=== PATIENT | female | born 1975 | race Caucasian/White ===

== ENCOUNTER 2019-12-19 12:20 | Emergency (ER) | payer OTHER, SELFPAY ==
[2019-12-19 12:20] VITALS: BP 149/85; PULSE 73; RESP 16; TEMP 36.9; O2SAT 100; BMI 24.7
--- NOTE | 2019-12-19 12:41 | ED_ITS ---
HPI - Headache <ADRIENNE Kan - Last Filed: 12/19/19 21:23> General Chief Complaint: Headache Stated Complaint: vision/headache Time Seen by Provider: 12/19/19 12:27 Mode of arrival: Ambulatory Limitations: no limitations History of Present Illness HPI Narrative: 44yo female with a history of migraine presents emergency department reporting unusual vision changes and headache that started today. Patient states she had a dull aching headache throughout the day yesterday. Today patient reports she went for a 5 mile jog today and did a strength workout. She returned to the [facility] an and approximately 60 minutes after her workout she was looking at a wearing panel and reported she lost central vision in her eyes bilaterally. She describes it as a ?horvath center that slowly enlarged for about 20 minutes. She rested immediately when this occurred, degree center eventually disappeared and she developed bilateral lateral peripheral vision loss and blinking lights with a mild headache with photophobi a. Patient states her headache is located on the central left side from her forehead to the back of her head approximately 3/10. Denies taking any medications for headache at this time. She did not have a headache prior to workup. Patient also reports associated nausea without vomiting. Patient states this has happened before approximately 7-8 years ago, she was evaluated at that time no further follow-up was indicated. Patient states that episode was less severe than this current episode. She does have intermittent night migraines that developed a few times a year, she reports photophobia, head pain, nausea, and resolution of headache after she vomits. She states her usual migraines are not like this. She denies any other symptoms such as fevers, chills, head trauma, neck pain, chest pain, shortness of breath, cough, difficulty swallowing, or any other concerns. Related Data Previous Rx's Medication Instructions Recorded metoclopramide HCl [Reglan] 10 mg PO Q6H PRN #14 tab 12/19/19 Allergies Allergy/AdvReac Type Severity Reaction Status Date / Time No Known Drug Allergies Allergy Verified 12/19/19 12:31 Review of Systems <ADRIENNE Kan - Last Filed: 12/19/19 21:23> Review of Systems Narrative: REVIEW OF SYSTEMS: GENERAL: Denies fever or chills. HENT: No head trauma. EYES: Reports vision loss, see HPI. CARDIOVASCULAR: No chest pain or syncope. RESPIRATORY: No shortness of breath or cough. GASTROINTESTINAL: Reports nausea, no vomiting MUSCULOSKELETAL: No pain, weakness, or deformities. INTEGUMENTARY: No rash, lesions, or pruritus. NEURO: No numbness, tingling, memory loss, or confusion. Patient History <ADRIENNE Kan - Last Filed: 12/19/19 21:23> Medical History No significant medical problems (Acute) Social History Smoking Status: Never smoker Smoking Status: Never smoker alcohol intake frequency: holidays/special occasions only Substance Use Type: does not use Exam <ADRIENNE Kan - Last Filed: 12/19/19 21:23> Initial Vital Signs Initial Vital Signs: Vital Signs Temperature 98.4 F 12/19/19 12:20 Pulse Rate 73 12/19/19 12:20 Respiratory Rate 16 12/19/19 12:20 Blood Pressure 149/85 H 12/19/19 12:20 Pulse Oximetry 100 12/19/19 12:20 PHYSICAL EXAMINATION: GENERAL: Well groomed, alert, and cooperative. Answers questions promptly and appropriately. Vital signs noted. HENT: Normocephalic. Ear canals patent. Oral mucosa is pink and moist. EYES: PERRLA, EOMIs, conjunctiva pink, sclera white, no periorbital swelling. Visual acuity with corrective vision B: 20/20, L:20/20, R:20/20. Peripheral vision appears intact on examination pre and post medication. NECK: Full ROM, no midline or spinal tenderness. CARDIOVASCULAR: S1 and S2 sounds normal. Regular rate and rhythm, no murmurs, clicks, or bruits. RESPIRATORY: Normal respiratory rate, trachea midline, airway patent. No stridor, nasal flaring or accessory muscle use. Lungs are clear in all hedrick without wheeze, rhonchi, or crackles. MUSCULOSKELETAL: Normal gait and coordination. Equal tone and mass bilaterally. Equal strength bilaterally to upper and lower extremities including deltoids, forearms, shank sorter strength and quadriceps. No spinal tenderness. EXTREMITIES: CMS intact. Moves all extremities. SKIN: Warm, dry, soft, appropriate color for ethnicity. No lesions, rashes, or wounds to visualized areas. NEURO: Alert and Oriented X 3. GCS: 15. Good coordination. No ataxia, or sensory deficits, or cognitive issues. Cranial Nerves: II: Visual hedrick grossly intact. III & IV & : EOMIs V: Able to open and close jaw. VII: Facial movements symetrical. Able to close eyelids tightly. VIII: Hearing grossly intact, adequate balance. X: Uvula pronation intact. XI: Patient is able to shrug shoulders. XII: Patient is able to stick out tongue. PSYCH: Appropriate affect and mood. <Ovidio Garcia DO - Last Filed: 12/20/19 07:08> Initial Vital Signs Initial Vital Signs: Vital Signs Temperature 98.4 F 12/19/19 12:20 Pulse Rate 73 12/19/19 12:20 Respiratory Rate 16 12/19/19 12:20 Blood Pressure 149/85 H 12/19/19 12:20 Pulse Oximetry 100 12/19/19 12:20 Scores <ADRIENNE Kan - Last Filed: 12/19/19 21:23> GCS Paull[place] coma scale eye opening: Spontaneous Tee coma scale verbal response: Orientated [place] coma scale motor response: Obey commands [place] coma scale total score: 15 NIH Stroke Scale Level of Conciousness: Alert, keenly responsive Ask month/age: Answers both questions correctly. Open/close eyes, close hand: Performs both tasks correctly Best gaze horizontal: Normal Visual hedrick: No visual loss Facial palsy: Normal symetrical movement Left arm drift: No drift for full 10 sec Right arm drift: No drift for full 10 sec Left leg drift: No drift for full 10 sec Right leg drift: No drift for full 10 sec Limb ataxia: Absent Sensory on face/arms/legs: Normal, no sensory loss Best language: No aphasia, normal Dysarthria: Normal Extinction or inattention: No abnormality Total NIH Stroke scale score: 0 Course <ADRIENNE Kan - Last Filed: 12/19/19 21:23> Course Course Narrative: Patient reports significant improvement of head pain after administration of medications. Patient states all vision abnormalities have resolved since decrease and headache. Discussed follow-up with patient and discussed discharge instructions. Orders Ordered: Discontinued Medications Diphenhydramine HCl (Benadryl) 25 mg IV NOW ONE Stop: 12/19/19 12:39 Last Admin: 12/19/19 12:47 Dose: 25 mg Documented by: ZACHARY Sodium Chloride (Normal Saline 0.9%) 1,000 mls @ 1,000 mls/hr IV BOLUS ONE Stop: 12/19/19 13:37 Last Infusion: 12/19/19 13:54 Dose: 0 mls/hr Documented by: Admin: 12/19/19 12:47 Dose: 1,000 mls/hr Documented by: ZACHARY Ketorolac Tromethamine (Toradol) 30 mg IV NOW ONE Stop: 12/19/19 12:39 Last Admin: 12/19/19 12:47 Dose: 30 mg Documented by: ZACHARY Metoclopramide HCl (Reglan) 10 mg IV NOW ONE Stop: 12/19/19 12:39 Last Admin: 12/19/19 12:47 Dose: 10 mg Documented by: ZACHARY Consultations Consultation #1: Patient staffed with Dr. Garcia, discussed symptoms, tests, and test results, as well as plan of care. Vital Signs Vital signs: Vital Signs - 8 hr 12/19/19 14:19 Pulse Rate 82 Respiratory Rate 16 Blood Pressure [Right Arm] 120/76 Pulse Oximetry 98 <Ovidio Garcia, DO - Last Filed: 12/20/19 07:08> Orders Ordered: Discontinued Medications Diphenhydramine HCl (Benadryl) 25 mg IV NOW ONE Stop: 12/19/19 12:39 Last Admin: 12/19/19 12:47 Dose: 25 mg Documented by: ZACHARY Sodium Chloride (Normal Saline 0.9%) 1,000 mls @ 1,000 mls/hr IV BOLUS ONE Stop: 12/19/19 13:37 Last Infusion: 12/19/19 13:54 Dose: 0 mls/hr Documented by: Admin: 12/19/19 12:47 Dose: 1,000 mls/hr Documented by: ZACHARY Ketorolac Tromethamine (Toradol) 30 mg IV NOW ONE Stop: 12/19/19 12:39 Last Admin: 12/19/19 12:47 Dose: 30 mg Documented by: ZACHARY Metoclopramide HCl (Reglan) 10 mg IV NOW ONE Stop: 12/19/19 12:39 Last Admin: 12/19/19 12:47 Dose: 10 mg Documented by: ZACHARY Vital Signs Vital signs: Vital Signs - 8 hr 12/19/19 14:19 Pulse Rate 82 Respiratory Rate 16 Blood Pressure [Right Arm] 120/76 Pulse Oximetry 98 MDM - Headache <ADRIENNE Kan - Last Filed: 12/19/19 21:23> Medical Records Attestation: I reviewed the patient's medical records. Lab Data Attestation: I reviewed the patient's lab results. Result diagrams: 12/19/19 12:57 12/19/19 12:57 Labs: Lab Results 12/19/19 12/19/19 Range/Units 12:57 12:57 WBC 7.6 (4.5-11.0) X10^3/uL RBC 4.57 (4.0-5.2) X10^6/uL Hgb 14.4 (12.0-16.0) g/dL Hct 40.4 (36-46) % MCV 88.4 (80-100) fL MCH 31.5 (26-34) PG MCHC 35.6 (30-36) % RDW 13.2 (11.6-14.8) % Plt Count 186 (150-400) X10^3/uL Neut % (Auto) 79.9 H (50-75) % Lymph % (Auto) 14.1 L (25-40) % Grainger % (Auto) 5.1 (3-14) % Eos % (Auto) 0.4 L (2-4) % Baso % (Auto) 0.5 (0-2) % Neut # (Auto) 6100 (8440-9568) /uL Lymph # (Auto) 1100 (5684-5802) /uL Grainger # (Auto) 400 (0-900) /uL Eos # (Auto) 0 (0-450) /uL Baso # (Auto) 0 (0-100) /uL Sodium 139 (137-145) mmol/L Potassium 4.0 (3.4-5.1) mmol/L Chloride 106 (98-107) mmol/L Carbon Dioxide 28 (22-32) mmol/L BUN 9 (7-17) mg/dL Creatinine 0.83 (0.52-1.04) mg/dL Estimated GFR > 60.0 (>60) mL/min BUN/Creatinine Ratio 10.8 (6-22) Glucose 86 (70-100) mg/dL Calcium 9.5 (8.4-10.2) mg/dL Total Bilirubin 0.6 (0.2-1.3) mg/dL AST 35 (14-36) IU/L ALT 22 (<35) IU/L Alkaline Phosphatase 57 (38-126) U/L Total Protein 6.8 (6.3-8.2) g/dL Albumin 4.1 (3.5-5.0) g/dL Globulin 2.7 (1.7-4.1) g/dL Albumin/Globulin Ratio 1.5 (1.0-2.8) Imaging Data CT scan - head: Radiologist's Impression: [address] [address] [address] Scan Report Signed Patient: Rachna Seals#: [id number] : 1975Acct:[id number] Age/Sex: 44 / FDate of Service: 12/19/19 Loc: ED Accession Number: [id number] Procedure: CT head/brain wo con Ordering Provider: Gale Bosch PROCEDURE: CT HEAD/BRAIN WO CON INDICATIONS: Vision changes TECHNIQUE: Noncontrast 4.5 mm thick angled axial sections acquired from the foramen magnum to the vertex, with coronal and sagittal reformats. For radiation dose reduction, the following was used: automated exposure control, adjustment of mA and/or kV according to patient size. COMPARISON: [facility], MR, BRAIN W/O CONTRAST, 08/25/2013, 20:56. FINDINGS: Image quality: Diagnostic. CSF spaces: Basal cisterns are patent. No extra-axial fluid collections. Ventricles are normal in size and shape. Brain: No midline shift. No intracranial masses or hemorrhage. Horvath-white matter interface is normal. Skull and face: Calvarium and visualized facial bones are intact, without suspicious lesions. Sinuses: Visualized sinuses and mastoids are clear. IMPRESSION: Negative head CT. No acute intracranial hemorrhage. Dictated by: Daren Mcdonough M.D. on 12/19/2019 at 12:28 Approved by: Daren Mcdonough M.D. on 12/19/2019 at 12:29 [facility] Narrative Medical decision making narrative: 44-year-old female with a history of migraines, presents emergency department for vision changes and headache that occurred today. Differential for vision changes includes a migraine with aura due to resolution of symptoms after pain medication, headache following visual disturbances, bilateral visual disturbances, and progression of central vision changes to per for vision changes was flashing lights, light sensitivity, and nausea. Less likely acute cranial etiology such as a bleed, CVA, or TIA due to NIH score of 0 without focal neurological deficits, negative head CT, bilateral occurrence of visual disturbances, peripheral vision loss on lateral side side bilaterally versus the same corresponding side bilaterally which would suggest multiple blood vessel involvement if this were the case. Additionally, patient had had clear migrainous symptoms that resolved with medication. Less likely retinal detachment due to bilateral occurrence, description of degree kenaitze that progressed into peripheral disturbances with flashing lights, no reports of return appearance or black spots that would be more consistent with retinal detachment. Visual acuity remains intact. Less likely acute angle glaucoma due to lack of eye pain, EOMI, symptoms occurring bilaterally with a headache. Patient has had the symptoms in the past but due to recurrence and worsening, head CT was ordered to rule out other etiology. Treatment with migraine pain medication protocol was successful. Patient was encouraged to follow up with her primary care provider in eye doctor for further evaluation. Return precautions given for new or worsening symptoms. Patient agreed to plan of care verbalized understanding. <Ovidio Garcia, DO - Last Filed: 12/20/19 07:08> Lab Data Labs: Lab Results 12/19/19 12/19/19 Range/Units 12:57 12:57 WBC 7.6 (4.5-11.0) X10^3/uL RBC 4.57 (4.0-5.2) X10^6/uL Hgb 14.4 (12.0-16.0) g/dL Hct 40.4 (36-46) % MCV 88.4 (80-100) fL MCH 31.5 (26-34) PG MCHC 35.6 (30-36) % RDW 13.2 (11.6-14.8) % Plt Count 186 (150-400) X10^3/uL Neut % (Auto) 79.9 H (50-75) % Lymph % (Auto) 14.1 L (25-40) % Grainger % (Auto) 5.1 (3-14) % Eos % (Auto) 0.4 L (2-4) % Baso % (Auto) 0.5 (0-2) % Neut # (Auto) 6100 (0371-6698) /uL Lymph # (Auto) 1100 (6530-4638) /uL Grainger # (Auto) 400 (0-900) /uL Eos # (Auto) 0 (0-450) /uL Baso # (Auto) 0 (0-100) /uL Sodium 139 (137-145) mmol/L Potassium 4.0 (3.4-5.1) mmol/L Chloride 106 (98-107) mmol/L Carbon Dioxide 28 (22-32) mmol/L BUN 9 (7-17) mg/dL Creatinine 0.83 (0.52-1.04) mg/dL Estimated GFR > 60.0 (>60) mL/min BUN/Creatinine Ratio 10.8 (6-22) Glucose 86 (70-100) mg/dL Calcium 9.5 (8.4-10.2) mg/dL Total Bilirubin 0.6 (0.2-1.3) mg/dL AST 35 (14-36) IU/L ALT 22 (<35) IU/L Alkaline Phosphatase 57 (38-126) U/L Total Protein 6.8 (6.3-8.2) g/dL Albumin 4.1 (3.5-5.0) g/dL Globulin 2.7 (1.7-4.1) g/dL Albumin/Globulin Ratio 1.5 (1.0-2.8) Discharge Plan Departure Patient Disposition: Home Clinical Impression: Migraine Qualifiers: Migraine type: with aura Status migrainosus presence: without status migra inosus Intractability: not intractable Qualified Code(s): G43.109 - Migraine with aura, not intractable, without status migrainosus Discharge Date/Time: 12/19/19 14:41 Instructions: DI for Migraine Activity Restrictions/Additional Instructions: Thank you for entrusting me with your care today. As discussed, head CT and laboratory work (CMP and CBC) are non-remarkable. I suspect your symptoms are most likely caused by migraine. However, encourage you to follow-up with your primary care provider and eye doctor in 1-2 weeks for re-evaluation. I have prescribed you Reglan, I suggest taking this, 25 mg of Benadryl, and either your Celebrex or ibuprofen if your headache starts to return this evening. Toradol was given to you at 1247, do not take any NSAIDs untile after 1847. Return emergency department immediately if you develop any new or worsening symptoms such as vision changes, facial droop, limb weakness, neck pain, chest pain, fevers, uncontrollable vomiting, or any other concerns. Prescriptions: New metoclopramide HCl [Reglan] 10 mg tablet 10 mg PO Q6H PRN (Reason: nausea and vomiting) Qty: 14 RF: 0 <Ovidio Garcia, DO - Last Filed: 12/20/19 07:08> [facility] Dr Garcia Co-Sign Statement: I was available for consultation during this patient's emergency department visit. This chart is signed by myself for administrative purposes only. I did not have direct contact with this patient during this visit. They were seen independently by the APC.
[2019-12-19] MEDS: KETOROLAC 60 MG/2 ML VIAL 30 MG IV (12:47)
[2019-12-19] MEDS: diphenhydrAMINE 50 MG/ML VIAL 25 MG IV (12:47)
[2019-12-19] MEDS: SODIUM CHLORIDE 0.9% 1,000 ML 1000 ML IV (12:47)
[2019-12-19] MEDS: METOCLOPRAMIDE 10 MG/2 ML INJ IV (12:47)
--- NOTE | 2019-12-19 12:50 | DI.CT.S_ITS ---
PROCEDURE: CT HEAD/BRAIN WO CON INDICATIONS: Vision changes TECHNIQUE: Noncontrast 4.5 mm thick angled axial sections acquired from the foramen magnum to the vertex, with coronal and sagittal reformats. For radiation dose reduction, the following was used: automated exposure control, adjustment of mA and/or kV according to patient size. COMPARISON: [facility], MR, BRAIN W/O CONTRAST, 08/25/2013, 20:56. FINDINGS: Image quality: Diagnostic. CSF spaces: Basal cisterns are patent. No extra-axial fluid collections. Ventricles are normal in size and shape. Brain: No midline shift. No intracranial masses or hemorrhage. Horvath-white matter interface is normal. Skull and face: Calvarium and visualized facial bones are intact, without suspicious lesions. Sinuses: Visualized sinuses and mastoids are clear. IMPRESSION: Negative head CT. No acute intracranial hemorrhage. Dictated by: Daren Mcdonough M.D. on 12/19/2019 at 12:28 Approved by: Daren Mcdonough M.D. on 12/19/2019 at 12:29
[2019-12-19 13:06] VITALS: BP 125/78; PULSE 65; RESP 17; O2SAT 100
[2019-12-19 13:16] LABS: Add Manual Diff / Slide Review NO; Basophils Absolute Auto 0 /uL (0-100); Basophils Percent Auto 0.5 % (0-2); Eosinophils Absolute Auto 0 /uL (0-450); Eosinophils Percent Auto 0.4 % (2-4); Hematocrit 40.4 % (36-46); Hemoglobin 14.4 g/dL (12.0-16.0); Lymphocytes Absolute Auto 1100 /uL (1100-4500); Lymphocytes Percent Auto 14.1 % (25-40); Mean Corpuscular HGB Conc 35.6 % (30-36); Mean Corpuscular Hemoglobin 31.5 PG (26-34); Mean Corpuscular Volume 88.4 fL (80-100); Monocytes Absolute Auto 400 /uL (0-900); Monocytes Percent Auto 5.1 % (3-14); Neutrophils Absolute Auto 6100 /uL (1500-7000); Neutrophils Percent Auto 79.9 % (50-75); Platelet Count 186 X10^3/uL (150-400); Red Blood Cell Count 4.57 X10^6/uL (4.0-5.2); Red Cell Distribution Width 13.2 % (11.6-14.8); White Blood Cell Count 7.6 X10^3/uL (4.5-11.0)
--- NOTE | 2019-12-19 13:16 | PC.NURSE ---
Pt experiencing central vision loss which resolved but then she began having peripheral vision loss. Pt peripheral vision returning but now her FLORES is getting worse. pt states that this has happened before but wants to make sure there is not something more serious going on.
[2019-12-19 13:32] LABS: Alanine Aminotransferase 22 IU/L (<35); Albumin 4.1 g/dL (3.5-5.0); Albumin Globulin Ratio 1.5 (1.0-2.8); Alkaline Phosphatase 57 U/L (38-126); Aspartate Aminotransferase 35 IU/L (14-36); BUN Creatinine Ratio 10.8 (6-22); Bilirubin Total 0.6 mg/dL (0.2-1.3); Blood Urea Nitrogen 9 mg/dL (7-17); Calcium 9.5 mg/dL (8.4-10.2); Carbon Dioxide 28 mmol/L (22-32); Chloride 106 mmol/L (98-107); Estimated Glomerular Filt Rate > 60.0 mL/min (>60); Globulin 2.7 g/dL (1.7-4.1); Glucose 86 mg/dL (70-100); HEMOLYSIS < 15 (0-50); Sodium 139 mmol/L (137-145); Total Protein 6.8 g/dL (6.3-8.2)
[2019-12-19 14:19] VITALS: BP 120/76; PULSE 82; RESP 16; O2SAT 98
== END 2019-12-19 14:41 | disposition home or self-care (01) ==
PROVIDERS: Emergency Provider Nurse Practitioner
DX: G43.109 Migraine with aura, not intractable, without status migrainosus (principal); H53.9 Unspecified visual disturbance
CPT/HCPCS: 36415; 70450; 80053; 85025; 96361; 96374; 96375; 99284; J1200; J1885; J2765

== ENCOUNTER → 2021-11-11 13:16 | Outpatient (CLI) | payer OTHER, SELFPAY ==
[2021-11-11 20:38] LABS: COVID19 - ORCAS (NP or Nasal) Negative (Negative)
== END ==
PROVIDERS: Visit Provider Family Medicine
DX: Z20.822 Contact with and (suspected) exposure to COVID-19 (principal)
CPT/HCPCS: U0003

== ENCOUNTER → 2022-08-31 13:44 | Outpatient (CLI) | payer OTHER, SELFPAY ==
[2022-08-31 19:45] LABS: Magnesium 1.9 mg/dL (1.6-2.3)
[2022-08-31 20:01] LABS: Free T3, Triiodothyronine Free 3.62 pg/mL (2.77-5.27); Free T4, Direct Thyroxine 1.19 ng/dL (0.78-2.19)
[2022-08-31 20:14] LABS: Thyroid Stimulating Hormone 1.64 uIU/mL (0.47-4.68)
[2022-08-31 20:17] LABS: Cortisol Random 5.52 ug/dL
[2022-08-31 20:21] LABS: Testosterone 45.3 ng/dL (5.71-77.0)
[2022-09-03 12:35] LABS: Osmolality Urine 923 mOsmol/kg (.); Osmolality, Serum 285 mOsmol/kg (275-295)
[2022-09-03 22:40] LABS: Triiodothyronine T3 Total 92 ng/dL (71-180)
[2022-09-06 22:41] LABS: Creatinine, Random Urine 172.2 mg/dL (Not Estab.)
[2022-09-11 19:12] LABS: Creatinine, Urine 164.1 mg/dL (Not Estab.); Homovanillic Acid/Creatinine 1.7 (0.0-7.6)
[2022-09-13 06:16] LABS: Pregnenolone 37 ng/dL (.)
[2022-09-13 16:00] LABS: Dihydrotestosterone 14 ng/dL (.)
[2022-09-15 00:28] LABS: Triiodothyronine T3 Reverse 13.1
== END ==
PROVIDERS: PCP Naturopath; Visit Provider Naturopath
DX: D89.9 Disorder involving the immune mechanism, unspecified (principal); E03.9 Hypothyroidism, unspecified; E06.3 Autoimmune thyroiditis; E28.2 Polycystic ovarian syndrome; E34.9 Endocrine disorder, unspecified; L65.9 Nonscarring hair loss, unspecified; N94.6 Dysmenorrhea, unspecified; R53.83 Other fatigue; R94.6 Abnormal results of thyroid function studies; Z79.899 Other long term (current) drug therapy
CPT/HCPCS: 82157; 82384; 82533; 82542; 82570; 82627; 82642; 83150; 83498; 83735; 83930; 83935; 84140; 84270; 84403; 84439; 84443; 84480; 84481; 84482; 84585

== ENCOUNTER → 2022-12-17 18:25 | Outpatient (ROUT) | payer OTHER, SELFPAY ==
[2022-12-20 13:46] LABS: Rubeola Measles IgG > 300.0 AU/mL (Immune >16.4); Var-Zoster Immunity Screen 3949 index (Immune >165)
== END ==
PROVIDERS: PCP Naturopath; Visit Provider Emergency Medicine
DX: Z11.59 Encounter for screening for other viral diseases (principal)
CPT/HCPCS: 86735; 86762; 86765; 86787